=== PATIENT | male | born 1965 | race Caucasian/White ===

== ENCOUNTER 2023-02-25 10:31 | Emergency (ER) | payer BC ==
[~2023-02-25] VITALS: Ht 195.6 cm; Wt 140.6 kg
[2023-02-25 10:50] VITALS: O2SAT 96
[2023-02-25] MEDS ORDERED: TDAP DIPH,PERTUSS,TET VAC/PF 0.5 ML DISP.SYRIN IM ONE ×2 (11:15→11:16)
[2023-02-25] MEDS ORDERED: LIDOCAINE HCL 1% 20 ML VIAL IJ ONE (11:15)
[2023-02-25] MEDS ORDERED: LIDOCAINE HCL 1% 20 ML VIAL ONE (11:16)
[2023-02-25] MEDS ORDERED: CEphaleXIN 500 MG CAPSULE PO ONE (13:15)
[2023-02-25] MEDS ORDERED: HYDROCODONE/APAP 5-325MG TABLET PO ONE (13:15)
[2023-02-25] MEDS ORDERED: CEPH500C2 PO (13:16)
[2023-02-25] MEDS ORDERED: HYDR-3980 PO (13:16)
[2023-02-25] MEDS ORDERED: CEphaleXIN 500 MG CAPSULE ONE (13:36)
[2023-02-25] MEDS ORDERED: HYDROCODONE/APAP 5-325MG TABLET ONE (13:37)
== END 2023-02-25 14:05 | disposition home or self-care (01) ==
LOC: ER 10:36
DX: S61.211A Laceration without foreign body of left index finger without damage to nail, initial encounter (principal); Z79.899 Other long term (current) drug therapy; W26.8XXA Contact with other sharp object(s), not elsewhere classified, initial encounter; Y93.89 Activity, other specified; Y92.89 Other specified places as the place of occurrence of the external cause; Y99.8 Other external cause status
CPT/HCPCS: 12002; 90471; 90715; 99283; J3490; A4663

== ENCOUNTER 2023-02-28 08:04 | Emergency (ER) | payer BC ==
[~2023-02-28] VITALS: Ht 193 cm; Wt 140.6 kg
[~2023-02-28 08:04] MED LIST: CEPH500C2 PO; HYDR-3980 PO
[2023-02-28 08:10] VITALS: O2SAT 99
[2023-02-28] MEDS ORDERED: NEOMY/BACITRA/POLYMYXIN B OINT UD PACKET TP ONE (08:17)
== END 2023-02-28 08:25 | disposition home or self-care (01) ==
LOC: ER 08:04
DX: S61.211D Laceration without foreign body of left index finger without damage to nail, subsequent encounter (principal); Z79.899 Other long term (current) drug therapy; X58.XXXD Exposure to other specified factors, subsequent encounter
CPT/HCPCS: A4663